=== PATIENT | female | born 1970 | race Caucasian/White ===

== ENCOUNTER 2016-05-05 18:20 | Emergency (ER) | payer SELFPAY ==
--- NOTE | 2016-05-05 19:50 | NUR ---
PATIENT LEFT WITHOUT BEING SEEN BY DR. PIZARRO. NO FURTHER CARE PROVIDED FOR PATIENT.
== END 2016-05-05 19:50 | disposition left against medical advice (07) ==
LOC: MED 18:20
DX: L02.91 Cutaneous abscess, unspecified (principal); Z53.21 Procedure and treatment not carried out due to patient leaving prior to being seen by health care provider